=== PATIENT | male | born 1960 | race African-American/Black ===

== ENCOUNTER 2019-11-16 19:11 | Inpatient (IN) | payer OTHER, MEDICAID ==
[~2019-11-16] VITALS: Ht 185.4 cm; Wt 84.8 kg
[2019-11-16 19:16] VITALS: BP_SYST 126
--- NOTE | 2019-11-16 19:16 | NUR ---
Patient to ER bed 8 to gown for evaluation. Side rails up. Report given to FAM Bryan.
--- NOTE | 2019-11-16 19:30 | NUR ---
Pt came to the ED for worsening swelling of his penis. Reports he has penile, ABD pain due to the swelling. Reports it has been going on for several weeks. Denies seeing PCP for issue. No other complaints/injuries noted. Will cont. to monitor.
--- NOTE | 2019-11-16 19:51 | NUR ---
ER Dr. Iverson at bedside examining patient.
[2019-11-16 20:22] LABS: BASOPHILS % (AUTO) 1.1 % (0.0-2.0); EOSINOPHILS % (AUTO) 0.7 % (0.0-4.0); HEMATOCRIT 39.3 % (36-54); HEMOGLOBIN 12.5 g/dL (14.0-18.0); LYMPHOCYTES # (AUTO) 1.3 K/uL (1.0-5.5); LYMPHOCYTES % (AUTO) 28.6 % (20.5-51.5); MEAN CORPUSCULAR HEMOGLOBIN 28 pg (27-31); MEAN CORPUSCULAR HGB CONC 32 % (32-36); MEAN CORPUSCULAR VOLUME 86 fL (79.0-98.0); MONOCYTES # (AUTO) 0.6 K/uL (0.0-1.0); MONOCYTES % (AUTO) 12.5 % (1.7-9.3); NEUTROPHILS # (AUTO) 2.7 K/uL (1.8-7.7); NEUTROPHILS % (AUTO) 57.1 % (40.0-70.0); PLATELET COUNT (AUTO) 260 K/uL (130-430); RED BLOOD CELL COUNT(AUTO) 4.56 MIL/uL (4.2-6.2); RED CELL DISTRIBUTION WIDTH 16.9 % (9.0-15.0); WHITE BLOOD COUNT (AUTO) 4.7 K/uL (4.8-10.8)
[2019-11-16 20:41] LABS: ANION GAP 7 (5-15); CALCIUM 8.5 mg/dL (8.4-11.0); CHLORIDE 106 mmol/L (98-107); GLUCOSE 93 mg/dL (70-99); POTASSIUM 3.9 mmol/L (3.5-5.1); SODIUM SERUM 140 mmol/L (136-145); UREA NITROGEN, BLOOD 26 mg/dL (8-21)
[2019-11-16 20:42] LABS: GFR AFRICAN AMERICAN 67 mL/min (>90)
--- NOTE | 2019-11-16 20:48 | NUR ---
verbal order received from Dr. Iverson for straight catheter. # 14 FR In and Out catheter with use of sterile technique. Immediate return of 150 ml dark yellow urine noted. Urine sample collected and sent to lab. Pt tolerated procedure well.
[2019-11-16 20:50] LABS: ALANINE AMINOTRANSFERASE 40 U/L (12-78); ALBUMIN 2.9 g/dL (3.4-4.8); ASPARTATE AMINOTRANSFERASE 25 U/L (10-37); LIPASE 140 U/L (73-393); TOTAL BILIRUBIN 0.3 mg/dL (0.0-1.0)
--- NOTE | 2019-11-16 21:00 | NUR ---
Pt resting comfortably in bed, no signs of acute distress. Will cont. to monitor.
[2019-11-16 21:50] LABS: BILIRUBIN,URINE 1+ (NEGATIVE); BLOOD, URINE NEGATIVE (NEGATIVE); CLARITY/URINE CLEAR (CLEAR); COLOR,URINE YELLOW (YELLOW); GLUCOSE,URINE NEGATIVE (NEGATIVE); KETONES,URINE NEGATIVE (NEGATIVE); LEUKOCYTE ESTERASE ,URINE NEGATIVE (NEGATIVE); NITRITE, URINE NEGATIVE (NEGATIVE); PROTEIN URINE 2+ (NEGATIVE)
[2019-11-16 22:06] LABS: INR 1.2 (0.80-1.20); PROTHROMBIN TIME 12.1 SECS (9.5-12.5)
[2019-11-16 22:23] LABS: BACTERIA,URINE FEW /HPF (None Seen); RBC,URINE NONE SEEN /HPF (0-3)
[2019-11-16 22:24] LABS: HYALINE CASTS, URINE 0-10 /LPF (None Seen); MUCUS,URINE None Seen /LPF (None Seen)
[2019-11-16] MEDS ORDERED: cefTRIAXone 1 GM IVPB PREMIX 50 ML IV ONE (22:30)
[2019-11-16] MEDS ORDERED: ASPI-1155 PO (23:08)
[2019-11-16] MEDS ORDERED: FAMO40TA7 PO (23:08)
[2019-11-16] MEDS ORDERED: GLIP10TA21 PO (23:08)
[2019-11-16] MEDS ORDERED: DIVA500T4 PO (23:08)
[2019-11-16] MEDS ORDERED: ACET325T53 PO (23:08)
[2019-11-16] MEDS ORDERED: ATEN-41 PO (23:08)
[2019-11-16] MEDS ORDERED: DOCU-144 PO (23:08)
[2019-11-16] MEDS ORDERED: GLU850 PO (23:08)
[2019-11-16] MEDS ORDERED: OLAN10TA3 PO (23:08)
[2019-11-16] MEDS ORDERED: UMEC62.5 IH (23:08)
--- NOTE | 2019-11-16 23:08 | NUR ---
Medication reconciliation completed with information provided by patients paperwork. Any prior medication reconciliation on file was reviewed and corrected.
--- NOTE | 2019-11-16 23:45 | NUR ---
Patient will be admitted to care of Dr. Mckinney. Admitted to [facility] unit. Will go to room 135. Belongings list completed. Complete and up to date summary report printed. SBAR report to be given at bedside with opportunity for questions.
--- NOTE | 2019-11-17 | NUR ---
Started pt on rocephin per MD order. However, when abx started, pt stated, "I need a breathing tx, I am having issues breathing." ER MD made aware. Pt started on 2L NC. Pt O2 saturation is 98 HR is 91.
--- NOTE | 2019-11-17 00:25 | NUR ---
Saumya arita in [facility] - 11/17/19 at 0036 by [email or web address] Transfer to [facility]. IV present no sign or symptom of infiltration.
--- NOTE | 2019-11-17 00:28 | NUR ---
Called [facility] for bed, reports nurse cannot take report due to "providing pt care." Will call back for bed assignment.
--- NOTE | 2019-11-17 00:36 | NUR ---
Transfer to [facility]. IV present no sign or symptom of infiltration.
[2019-11-17 00:40] VITALS: BP_SYST 116
--- NOTE | 2019-11-17 00:41 | NUR ---
ADMISSION NOTE Received patient from ER via gurney. Patient admitted with diagnosis of UTI. Patient is awake, alert, oriented X 3. Patient oriented to hospital room, call light, toileting, pain management and safety-teach back done. Patient informed that FAM Jason will be primary nurse and that their room number is 132C. Personal belongings checked and Belongings List documented. Call light within reach.
[2019-11-17 00:57] VITALS: BP_SYST 116
[2019-11-17] MEDS ORDERED: FLU VACC QS2019-20 36MOS UP/PF 60 MCG/0.5 ML SYRINGE I.M. PRN (01:00)
[2019-11-17] MEDS: KCL 20 mEq in D5/0.45NS 1000mL 1,000 ML IV SCH ×2 (02:06→15:18)
[2019-11-17] MEDS ORDERED: KCL 20 mEq in D5/0.45NS 1000mL 1,000 ML IV ONE (02:08)
--- NOTE | 2019-11-17 06:28 | NUR ---
dr Mckinney informed about the admission prem that the medication reconciliation is not done, will come to see the patient
[2019-11-17 08:00] VITALS: BP_SYST 138
--- NOTE | 2019-11-17 08:00 | NUR ---
Note Pt sitting up in bed eating his breakfast. No SOB/resp distress or pain/discomfort noted. IV in right forearm intact and patent infusing IVF's well. Pt next to nurses' station for close observation for needs and care. No needs noted at this time. Call light within reach.
--- NOTE | 2019-11-17 08:03 | NUR ---
report given to the day shift rn that the patient was given rocephin in er fkir the infection but had a claimed reaction. needsx to ask Dr Mckinney about it,
--- NOTE | 2019-11-17 11:50 | NUR ---
Note Pt resting in bed. No needs noted at this time. Pt's mother and brother have left bedside and gone home. They were at bedside for about an hour. Power of Mid Level Net Developer form in chart - was faxed over from [facility] (pt' residence) per pt's brother's request. Pt denies any needs at this time. Call light within reach.
[2019-11-17 12:53] VITALS: BP_SYST 104
[2019-11-17] MEDS ORDERED: ACETAMINOPHEN 325 MG TABLET PO SCH (15:15)
--- NOTE | 2019-11-17 15:40 | NUR ---
Note Dr Mckinney at bedside doing physical assessment and answering questions/concerns at this time. Call light within reach.
--- NOTE | 2019-11-17 16:56 | NUR ---
Component Assembler: met with pt. to conduct a DCPA PUNCH PRESS SETTER introduced self. Pt was pleasant and willing to assist PUNCH PRESS SETTER with the interview. Pt. stated he was going back to live with his mom however Rn stated pt. came from [facility]. Pt was able to answer questions however PUNCH PRESS SETTER is unsure of the validity. Pt. has a history of Schizophrenia, Bipolar, Anxiety and Dementia. PT. stated he is good with taking all of his medication because it helps him stay calm, he is able to carry a conversation and feels better. PUNCH PRESS SETTER thanks him for all his help.PUNCH PRESS SETTER will remain available as needed.
--- NOTE | 2019-11-17 18:25 | NUR ---
Note Pt sitting on side of bed and eating his dinner. No SOB/resp distress or perineal pain/discomfort noted at this time. Pt was checked on q1' and PRN all shift for needs and care. No needs noted at this time. Call light within reach. Pt pulled out his IV, wants to eat his dinner before having new IV inserted.
--- NOTE | 2019-11-17 19:30 | NUR ---
Opening Note Received report from celina RN, patient sitting up in bed, even and unlabored breathing on room air, no complaints of pain at this time, no IV in place, will reinsert new IV, safety and fall precautions in place, bed locked and in lowest position, patient refused bed alarm despite education, will reinforce education, two side rails up, bed close to nursing station, call light with patient, will continue to monitor.
[2019-11-17 20:00] VITALS: BP_SYST 122
--- NOTE | 2019-11-17 20:30 | NUR ---
IV RE-INSERTION: Received report from celina RN that patient pulled out IV, no signs of injury to the site. Restarted new IV to the left forearm at this time. Successful after 1 attempt. Will observe for any signs of infiltration.
[2019-11-17] MEDS: CEFEPIME 1 GM in D5W 50 ML IV SCH (20:44)
[2019-11-17] MEDS: DIVALPROEX SODIUM 500 MG TAB.SR.24H (DEPAKOTE ER) PO SCH (20:46)
[2019-11-17] MEDS: DOCUSATE SODIUM 100 MG CAPSULE PO SCH (20:46)
[2019-11-17] MEDS: OLANZapine 10 MG TABLET PO SCH (20:46)
--- NOTE | 2019-11-17 22:05 | NUR ---
Incontinence Care Patient had a small BM on bed, incontinence care rendered by this RN, patient is clean and dry. New linens provided. Call light with patient, will continue to monitor.
[2019-11-18] VITALS: BP_SYST 106
--- NOTE | 2019-11-18 00:47 | NUR ---
Incontinence Care Patient had a small loose BM on bed, incontinence care rendered by this RN, patient is clean, dry and repositioned. New linens provided. Call light with patient. Will continue to monitor.
--- NOTE | 2019-11-18 02:05 | NUR ---
RN Rounds Patient resting in bed, even and unlabored breathing on 2L NC, no signs of acute distress, no complaints of pain, IV site is SL, safety and fall precautions in place, call light with patient, will continue to monitor.
--- NOTE | 2019-11-18 04:06 | NUR ---
RN Rounds Assisted patient to restroom and back to bed safely, patient voided, reported no pain, steady gait, no signs of acute distress, IV site is SL and intact, safety and fall precautions in place, call light with patient, will continue to monitor.
[2019-11-18] MEDS: KCL 20 mEq in D5/0.45NS 1000mL 1,000 ML IV SCH (05:14)
--- NOTE | 2019-11-18 06:40 | NUR ---
Closing Note Patient resting in bed, even and unlabored breathing on room air, no complaints of pain at this time, IV intact and infusing well, safety and fall precautions in place, bed locked and in lowest position, patient refused bed alarm despite education, two side rails up, bed close to nursing station, call light with patient, will endorse care to dayshift RN.
[2019-11-18 06:59] LABS: BASOPHILS # (AUTO) 0.1 K/uL (0.0-0.2); BASOPHILS % (AUTO) 1.5 % (0.0-2.0); EOSINOPHILS % (AUTO) 0.4 % (0.0-4.0); LYMPHOCYTES # (AUTO) 1.7 K/uL (1.0-5.5); LYMPHOCYTES % (AUTO) 34.1 % (20.5-51.5); MEAN CORPUSCULAR HEMOGLOBIN 28 pg (27-31); MEAN CORPUSCULAR HGB CONC 33 % (32-36); MEAN CORPUSCULAR VOLUME 86 fL (79.0-98.0); MONOCYTES # (AUTO) 0.6 K/uL (0.0-1.0); MONOCYTES % (AUTO) 11.5 % (1.7-9.3); NEUTROPHILS # (AUTO) 2.7 K/uL (1.8-7.7); NEUTROPHILS % (AUTO) 52.5 % (40.0-70.0); PLATELET COUNT (AUTO) 238 K/uL (130-430); RED BLOOD CELL COUNT(AUTO) 4.29 MIL/uL (4.2-6.2); RED CELL DISTRIBUTION WIDTH 16.7 % (9.0-15.0); WHITE BLOOD COUNT (AUTO) 5.1 K/uL (4.8-10.8)
[2019-11-18 07:16] LABS: CALCIUM 8.4 mg/dL (8.4-11.0); CREATININE 1.08 mg/dL (0.55-1.30); POTASSIUM 3.8 mmol/L (3.5-5.1)
--- NOTE | 2019-11-18 08:00 | NUR ---
AWAKE ALERT SLIGHTLY AGITATED GEETING OUT IF BED SREAMNG STSTED THE DOCTOR IS DISCHARGING HIM TODAY RIGHT NOW WANRING TO CHNAGE HIS CLOTHES TO BE DISCHARGE .
[2019-11-18] MEDS: FAMOTIDINE 20 MG TABLET PO SCH (09:00)
[2019-11-18] MEDS: DIVALPROEX SODIUM 500 MG TAB.SR.24H (DEPAKOTE ER) PO SCH (09:00)
[2019-11-18] MEDS: DOCUSATE SODIUM 100 MG CAPSULE PO SCH ×2 (09:00→22:26)
--- NOTE | 2019-11-18 10:00 | NUR ---
QUIET COOPERATIVE FLUIDS GIVEN WITH ANTIBIOTICS
[2019-11-18] MEDS: CEFEPIME 1 GM in D5W 50 ML IV SCH ×2 (11:00→22:25)
[2019-11-18] MEDS: ASPIRIN 81 MG TAB.CHEW PO SCH (11:01)
[2019-11-18] MEDS: glipiZIDE XL 5 MG TAB ( GLUCOTROL XL) PO SCH (11:04)
[2019-11-18] MEDS: ATENOLOL 25 MG TABLET(TENORMIN) PO SCH (11:06)
[2019-11-18] MEDS: ENOXAPARIN SODIUM 40 MG/0.4 ML SYRINGE SUBCUT SCH (11:07)
--- NOTE | 2019-11-18 12:00 | NUR ---
AWAKE VERY COOPERATIVE TOOK ORAL MEDS GOOD
[2019-11-18 12:27] VITALS: BP_SYST 109
[2019-11-18 12:54] VITALS: BP_SYST 116
[2019-11-18] MEDS ORDERED: MUPIROCIN 2% TOPICAL OINTMENT 22 GM NS ONE (14:00)
--- NOTE | 2019-11-18 14:23 | NUR ---
ATTENDING [facility] DR RAMSEY WAS CALLED, RE: ORDER FOR CHEST XRAY., PT IS WHEEZING, R/O CHF. SPOKE TO JE.
--- NOTE | 2019-11-18 15:00 | NUR ---
UP IN BED TO GO TO THE BATHROOM VERY COOPERATIVE APPETITE FOR LUNCH GOOD
[2019-11-18 18:25] VITALS: BP_SYST 107
--- NOTE | 2019-11-18 18:41 | NUR ---
No significant changes in assessment ,denies any SOB , NO discomfort.
--- NOTE | 2019-11-18 19:10 | NUR ---
OPENING NOTES Patient AOx1. Patient watching TV, calm and cooperative, follow commands. No signs of respiratory distress noted. Denies pain and discomfort at this time. IV site, patency noted. On contact precaution. Call light within reach, patient educated to use call light when assistance is needed, patient verbalized ''ok''. Bed alarm on. Bed locked and in lowest position. Safety precautions in place. Will continue to monitor patient.
[2019-11-18 20:00] VITALS: BP_SYST 136
[2019-11-18] MEDS: OLANZapine 10 MG TABLET PO SCH (22:25)
[2019-11-18] MEDS: MUPIROCIN 2% TOPICAL OINTMENT 22 GM NS SCH (22:26)
[2019-11-18] MEDS: DIVALPROEX SODIUM 500 MG TABLET( DEPAKOTE) PO SCH (22:26)
--- NOTE | 2019-11-18 22:29 | NUR ---
MED PASS Due medication given at this time. BS 72, patient offered orange juice and snacks. No signs of respiratory distress and discomfort noted. Skin warm and dry. No signs of hypoglycemia noted. Patient cooperative. Safety precautions in place. Will continue to monitor.
--- NOTE | 2019-11-18 23:30 | NUR ---
MARY CARE Mary care done at this time with help of ANNITA Betancourt. Patient tolerated well. No signs of respiratory distress and discomfort noted. Safety precautions in place. Will continue to monitor patient.
[2019-11-19] VITALS: BP_SYST 132
--- NOTE | 2019-11-19 01:33 | NUR ---
RN ROUNDS Patient asleep at this time. No signs of respiratory distress and discomfort noted. Breathing even and unlabored. Safety precautions in place. Will continue to monitor patient.
--- NOTE | 2019-11-19 04:35 | NUR ---
RN ROUNDS Patient asleep at this time. No signs of respiratory distress and discomfort noted. Breathing and unlabored. Safety precautions in place. Will continue to monitor.
--- NOTE | 2019-11-19 06:27 | NUR ---
CLOSING NOTES Patient awake AOX1. BS checked was 72. No coverage needed. Patient offered to drink orange juice and offered snacks. No signs of respiratory distress noted. Denies pain and discomfort at this time. On contact precautions maintained throughout the shift. IV site, patency noted. Call light within reach. Bed locked and in lowest position. Safety precautions in place. All needs met throughout the shift. Will continue to monitor until endorsed to oncoming shift nurse for continuity of care.
--- NOTE | 2019-11-19 07:12 | NUR ---
Nutrition Update Gm Scale 18 noted. Pt admitted for UTI Diet: [facility] BMI: 24.7 kg/m2 RD to follow per nutrition care standards.
--- NOTE | 2019-11-19 07:35 | NUR ---
Initial notes: Patient awake, alert and oriented x2. Follow command. Stable. I.V. access patent. On isolation precaution. Call light within reach. Safety measures in placed. Report received at bedside.
[2019-11-19 08:00] VITALS: BP_SYST 131
[2019-11-19 08:04] LABS: BASOPHILS # (AUTO) 0.1 K/uL (0.0-0.2); BASOPHILS % (AUTO) 1.1 % (0.0-2.0); EOSINOPHILS % (AUTO) 0.5 % (0.0-4.0); HEMATOCRIT 39.4 % (36-54); HEMOGLOBIN 12.6 g/dL (14.0-18.0); LYMPHOCYTES # (AUTO) 1.7 K/uL (1.0-5.5); LYMPHOCYTES % (AUTO) 36.5 % (20.5-51.5); MEAN CORPUSCULAR HEMOGLOBIN 28 pg (27-31); MEAN CORPUSCULAR HGB CONC 32 % (32-36); MEAN CORPUSCULAR VOLUME 87 fL (79.0-98.0); MONOCYTES # (AUTO) 0.5 K/uL (0.0-1.0); MONOCYTES % (AUTO) 10.6 % (1.7-9.3); NEUTROPHILS # (AUTO) 2.4 K/uL (1.8-7.7); NEUTROPHILS % (AUTO) 51.3 % (40.0-70.0); PLATELET COUNT (AUTO) 256 K/uL (130-430); RED BLOOD CELL COUNT(AUTO) 4.55 MIL/uL (4.2-6.2); RED CELL DISTRIBUTION WIDTH 17.1 % (9.0-15.0); WHITE BLOOD COUNT (AUTO) 4.8 K/uL (4.8-10.8)
[2019-11-19] MEDS: DIVALPROEX SODIUM 500 MG TABLET( DEPAKOTE) PO SCH ×2 (08:27→20:17)
[2019-11-19] MEDS: DOCUSATE SODIUM 100 MG CAPSULE PO SCH ×3 (08:27→20:17)
[2019-11-19] MEDS: FAMOTIDINE 20 MG TABLET PO SCH (08:28)
[2019-11-19] MEDS: ATENOLOL 25 MG TABLET(TENORMIN) PO SCH (08:28)
[2019-11-19 08:29] LABS: ALBUMIN 3.2 g/dL (3.4-4.8); CALCIUM 8.8 mg/dL (8.4-11.0); CREATININE 1.05 mg/dL (0.55-1.30); POTASSIUM 4.4 mmol/L (3.5-5.1); TOTAL BILIRUBIN 0.6 mg/dL (0.0-1.0)
[2019-11-19] MEDS: ENOXAPARIN SODIUM 40 MG/0.4 ML SYRINGE SUBCUT SCH (08:29)
[2019-11-19] MEDS: glipiZIDE XL 5 MG TAB ( GLUCOTROL XL) PO SCH (08:29)
[2019-11-19] MEDS: ASPIRIN 81 MG TAB.CHEW PO SCH (08:29)
[2019-11-19] MEDS: MUPIROCIN 2% TOPICAL OINTMENT 22 GM NS SCH ×2 (08:30→20:16)
[2019-11-19] MEDS: CEFEPIME 1 GM in D5W 50 ML IV SCH ×2 (08:30→20:16)
--- NOTE | 2019-11-19 11:30 | NUR ---
MARY CARE Mary care done at this time. Patient calm and cooperative. No signs of respiratory distress and discomfort noted. Denies pain at this time. NO SOB. Patient on 2L of oxygen via nasal cannula, attached and secured. Safety precautions in place. Will continue to monitor. Addendum: 11/19/19 at 2345 by Britney Davey RN wrong time , not 1130 instead 2330
[2019-11-19 12:41] VITALS: BP_SYST 100
--- NOTE | 2019-11-19 12:57 | NUR ---
rounds: Patient ambulates to the toilet with assist.
[2019-11-19] MEDS ORDERED: MUPIROCIN 2% TOPICAL OINTMENT 22 GM NS SCH (13:20)
[2019-11-19] MEDS ORDERED: INSULIN REGULAR, HUMAN 100 UNITS/ML, 10 ML VIAL (humuLIN R) SUBCUT PRN (13:30)
[2019-11-19] MEDS ORDERED: DEXTROSE 50%-WATER 50 ML DISP.SYRIN IVP PRN (13:45)
[2019-11-19] MEDS ORDERED: GLUCOSE 15 GM GEL (in 37.5 GM TUBE) PO PRN (13:45)
[2019-11-19] MEDS ORDERED: D5W 1,000 ML IV PRN (13:45)
--- NOTE | 2019-11-19 17:17 | NUR ---
IV: IV RE-INSERTION: IV catheter accidentally pulled. Restarted on LAC #20 on saline lock. Successful after 2 attempts. Will observe for any signs of infiltration.
[2019-11-19 17:34] VITALS: BP_SYST 118
[2019-11-19] MEDS ORDERED: IPRATROPIUM/ALBUTEROL SULFATE 3 ML AMPUL.NEB (DUONEB) INH PRN (18:00)
--- NOTE | 2019-11-19 18:07 | NUR ---
SOB: Patient observed having expiratory wheezing. He said he have an inhaler. Paged Dr. Izaguirre with new order for breathing tx. Addendum: 11/19/19 at 1809 by Paloma Johnson RN Checked 02sat 96%.
--- NOTE | 2019-11-19 18:09 | NUR ---
BM: Patient states he had 2 loose BM this morning. No more BM in the afternoon. Will continue to monitor.
--- NOTE | 2019-11-19 18:14 | NUR ---
Closing notes: Patient resting on bed. Respiratory was called for breathing treatment. Patient stable. On contact precaution. Needs attended. Call light within reach. Safety measures in placed. Report will be given to parking station attendant.
[2019-11-19] MEDS ORDERED: IPRATROPIUM/ALBUTEROL SULFATE 3 ML AMPUL.NEB (DUONEB) ONE (18:32)
--- NOTE | 2019-11-19 19:10 | NUR ---
OPENING NOTES Patient AOx1. Patient lying in bed, calm and cooperative, follow commands. No signs of respiratory distress noted. Denies pain and discomfort at this time. On 2L of oxygen via nasal cannula. IV site, patency noted. On contact precaution. Call light within reach. Bed alarm on. Bed locked and in lowest position. Safety precautions in place. Will continue to monitor patient.
[2019-11-19 20:00] VITALS: BP_SYST 126
[2019-11-19 20:07] VITALS: BP_SYST 118
--- NOTE | 2019-11-19 20:16 | NUR ---
MED PASS Due medication given at this time. BS 86, patient offered orange juice and snacks. No signs of respiratory distress and discomfort noted. Skin warm and dry. No signs of hypoglycemia noted. Patient cooperative. Safety precautions in place. Will continue to monitor.
[2019-11-19] MEDS: OLANZapine 10 MG TABLET PO SCH (20:17)
--- NOTE | 2019-11-19 23:30 | NUR ---
MARY CARE Mary care done at this time. Patient calm and cooperative. No signs of respiratory distress and discomfort noted. Denies pain at this time. NO SOB. Patient on 2L of oxygen via nasal cannula, attached and secured. Safety precautions in place. Will continue to monitor.
--- NOTE | 2019-11-20 02:33 | NUR ---
RN ROUNDS Patient asleep at this time. No signs of respiratory distress and discomfort noted. On 2L of oxygen via nasal cannula, attached and secured. Breathing even and unlabored. Safety precautions in place. Will continue to monitor patient.
--- NOTE | 2019-11-20 04:22 | NUR ---
RN ROUNDS Patient asleep at this time. No signs of respiratory distress and discomfort noted. On 2L of oxygen via nasal cannula, attached and secured. Breathing even and unlabored. Safety precautions in place. Call light within reach. Will continue to monitor patient.
[2019-11-20 06:29] LABS: BASOPHILS % (AUTO) 0.7 % (0.0-2.0); EOSINOPHILS # (AUTO) 0.1 K/uL (0.0-0.4); EOSINOPHILS % (AUTO) 1.3 % (0.0-4.0); HEMATOCRIT 38.2 % (36-54); HEMOGLOBIN 12.1 g/dL (14.0-18.0); LYMPHOCYTES # (AUTO) 1.8 K/uL (1.0-5.5); LYMPHOCYTES % (AUTO) 41.2 % (20.5-51.5); MEAN CORPUSCULAR HEMOGLOBIN 27 pg (27-31); MEAN CORPUSCULAR HGB CONC 32 % (32-36); MEAN CORPUSCULAR VOLUME 87 fL (79.0-98.0); MONOCYTES # (AUTO) 0.5 K/uL (0.0-1.0); MONOCYTES % (AUTO) 11.1 % (1.7-9.3); NEUTROPHILS % (AUTO) 45.7 % (40.0-70.0); PLATELET COUNT (AUTO) 236 K/uL (130-430); RED BLOOD CELL COUNT(AUTO) 4.41 MIL/uL (4.2-6.2); RED CELL DISTRIBUTION WIDTH 17.2 % (9.0-15.0); WHITE BLOOD COUNT (AUTO) 4.4 K/uL (4.8-10.8)
[2019-11-20 06:43] LABS: CALCIUM 8.8 mg/dL (8.4-11.0); CREATININE 1.01 mg/dL (0.55-1.30)
--- NOTE | 2019-11-20 06:47 | NUR ---
CLOSING NOTES Patient awake, lying in bed, AOX1. BS checked was 96. No coverage needed. Patient was offered to drink orange juice and offered snacks. No signs of respiratory distress noted. on 2L of oxygen via nasal cannula, attached and secured. Denies pain and discomfort at this time. On contact precautions maintained throughout the shift. IV site, patency noted. Call light within reach. Bed locked and in lowest position. Safety precautions in place. All needs met throughout the shift. Will continue to monitor until endorsed to oncoming shift nurse for continuity of care.
[2019-11-20 08:00] VITALS: BP_SYST 122
--- NOTE | 2019-11-20 08:00 | NUR ---
received awake and in discomfort 06/10 and prn med to be given.resp even and receiving neb tx.vss.up amb in room.iso maintained.lac sl patent.will continue to monitor and call porter in place
[2019-11-20] MEDS: glipiZIDE XL 5 MG TAB ( GLUCOTROL XL) PO SCH (08:08)
[2019-11-20] MEDS: DIVALPROEX SODIUM 500 MG TABLET( DEPAKOTE) PO SCH (08:08)
[2019-11-20] MEDS: FAMOTIDINE 20 MG TABLET PO SCH (08:09)
[2019-11-20] MEDS: ATENOLOL 25 MG TABLET(TENORMIN) PO SCH (08:09)
[2019-11-20] MEDS: DOCUSATE SODIUM 100 MG CAPSULE PO SCH (08:10)
[2019-11-20] MEDS: ASPIRIN 81 MG TAB.CHEW PO SCH (08:10)
[2019-11-20] MEDS: ENOXAPARIN SODIUM 40 MG/0.4 ML SYRINGE SUBCUT SCH (08:11)
[2019-11-20] MEDS: MUPIROCIN 2% TOPICAL OINTMENT 22 GM NS SCH (08:19)
[2019-11-20] MEDS: CEFEPIME 1 GM in D5W 50 ML IV SCH (08:19)
[2019-11-20 12:00] VITALS: BP_SYST 119
--- NOTE | 2019-11-20 14:00 | NUR ---
Discharge Planning: DCP faxed to Jerad Rogers ( [phone] p [phone]) Addendum: 11/20/19 at 1455 by Jo Day DP Ancram p [phone]) per Rodrigo pt will go to 112V
--- NOTE | 2019-11-20 15:49 | NUR ---
Discharge Planning: Pt has been accepted back to [facility] ([phone]) pt will be going to room 112A. Ambulance has been set up with [facility] ([phone]) orange picker scheduled for 6:00pm; packet taken to nurses station.
[2019-11-20 15:51] VITALS: BP_SYST 125
[2019-11-20 16:00] VITALS: BP_SYST 121
--- NOTE | 2019-11-20 16:30 | NUR ---
REPORT CALLED TO SHAILA AT [facility] PT WILL TRANSFER THERE AT 1800 SCHEDULED PICKUP.BS 49 AND ORANGE JUICE GIVEN AND MEAL TRAY AND WILL CHECK BS AGAIN WHEN DONE.
--- NOTE | 2019-11-20 18:00 | NUR ---
PT PICKED UP FOR TX TO [facility] BY [facility].BS WASNT RECHECKED UPON D/C R BECAUSE PT REFUSED BUT ATE MEAL AND HAD 2 OJS.REPORT GIVEN TO ART HISTORY PROFESSOR AND PAPERWORK TAKEN.
== END 2019-11-20 18:00 | DRG 689 ==
LOC: SED 19:11 → SMU 23:01
PROVIDERS: ADMIT Family Medicine; ATTEND Family Medicine
DX: N39.0 Urinary tract infection, site not specified (principal); N17.0 Acute kidney failure with tubular necrosis; E44.0 Moderate protein-calorie malnutrition; I10 Essential (primary) hypertension; F03.90 Unspecified dementia, unspecified severity, without behavioral disturbance, psychotic disturbance, mood disturbance, and anxiety; F17.210 Nicotine dependence, cigarettes, uncomplicated; E11.9 Type 2 diabetes mellitus without complications; N50.89 Other specified disorders of the male genital organs; F29 Unspecified psychosis not due to a substance or known physiological condition; Z68.27 Body mass index [BMI] 27.0-27.9, adult; Z79.899 Other long term (current) drug therapy; Z88.8 Allergy status to other drugs, medicaments and biological substances; Z79.82 Long term (current) use of aspirin
CPT/HCPCS: 36415; 80048; 80053; 81000-TC; 82962; 83036; 83690-TC; 83880; 84484; 85025; 85610-TC; 85730-TC; 87081; 87086; 87230-TC; 96365; 99285; J0692; J0696; J1650; J1815; J7060; J7620

== ENCOUNTER 2019-11-28 20:55 | Inpatient (IN) | payer OTHER, MEDICAID ==
[~2019-11-28] VITALS: Ht 185.4 cm; Wt 93.1 kg
[2019-11-28 20:55] VITALS: BP_SYST 122
[~2019-11-28 20:55] MED LIST: ACET325T53 PO; ASPI-1155 PO; ATEN-41 PO; DIVA500T4 PO; DOCU-144 PO; FAMO40TA7 PO; GLIP10TA21 PO; GLU850 PO; OLAN10TA3 PO; UMEC62.5 IH
[2019-11-29] MEDS ORDERED: UMEC62.5 IH (03:13)
[2019-11-29] MEDS ORDERED: FURO-150 PO (03:13)
[2019-11-29] MEDS ORDERED: FAMO40TA7 PO (03:13)
[2019-11-29] MEDS ORDERED: GLIP10TA11 PO (03:13)
[2019-11-29] MEDS ORDERED: ACET-2165 PO (03:13)
[2019-11-29] MEDS ORDERED: CIPR-211 PO (03:13)
[2019-11-29 03:41] LABS: BASOPHILS % (AUTO) 0.9 % (0.0-2.0); EOSINOPHILS % (AUTO) 0.7 % (0.0-4.0); HEMATOCRIT 37.9 % (36-54); LYMPHOCYTES # (AUTO) 1.2 K/uL (1.0-5.5); LYMPHOCYTES % (AUTO) 30.3 % (20.5-51.5); MEAN CORPUSCULAR HEMOGLOBIN 27 pg (27-31); MEAN CORPUSCULAR HGB CONC 32 % (32-36); MEAN CORPUSCULAR VOLUME 86 fL (79.0-98.0); MONOCYTES # (AUTO) 0.6 K/uL (0.0-1.0); MONOCYTES % (AUTO) 15.5 % (1.7-9.3); NEUTROPHILS # (AUTO) 2.2 K/uL (1.8-7.7); NEUTROPHILS % (AUTO) 52.6 % (40.0-70.0); PLATELET COUNT (AUTO) 206 K/uL (130-430); RED BLOOD CELL COUNT(AUTO) 4.44 MIL/uL (4.2-6.2); RED CELL DISTRIBUTION WIDTH 17.1 % (9.0-15.0); WHITE BLOOD COUNT (AUTO) 4.1 K/uL (4.8-10.8)
[2019-11-29] MEDS ORDERED: KETOROLAC TROMETHAMINE 15 MG VIAL IVP PRN (03:45)
[2019-11-29 03:52] LABS: CALCIUM 8.6 mg/dL (8.4-11.0); CREATININE 0.98 mg/dL (0.55-1.30); POTASSIUM 3.9 mmol/L (3.5-5.1)
[2019-11-29 03:58] LABS: ALBUMIN 3.2 g/dL (3.4-4.8); TOTAL BILIRUBIN 0.4 mg/dL (0.0-1.0)
[2019-11-29 10:24] VITALS: BP_SYST 108
[2019-11-29] MEDS ORDERED: FLU VACC QS2019-20 36MOS UP/PF 60 MCG/0.5 ML SYRINGE I.M. PRN (11:00)
[2019-11-29] MEDS ORDERED: INSULIN REGULAR, HUMAN 100 UNITS/ML, 10 ML VIAL (humuLIN R) SUBCUT PRN (14:00)
[2019-11-29] MEDS ORDERED: LevALBUTEROL HCL 1.25 MG/0.5 ML *CONC.* VIAL.NEB (XOPENEX CONC.) INH PRN (14:00)
[2019-11-29] MEDS ORDERED: DOCUSATE SODIUM 100 MG CAPSULE PO ONE (14:00)
[2019-11-29] MEDS ORDERED: ASPIRIN 81 MG TAB.CHEW PO ONE (14:00)
[2019-11-29] MEDS ORDERED: ACETAMINOPHEN 325 MG TABLET PO PRN (14:00)
[2019-11-29] MEDS ORDERED: FAMOTIDINE 20 MG TABLET PO ONE (14:15)
[2019-11-29] MEDS ORDERED: DEXTROSE 50%-WATER 50 ML DISP.SYRIN IVP PRN (14:15)
[2019-11-29] MEDS ORDERED: FUROSEMIDE 20 MG/2 ML VIAL IVP ONE (14:15)
[2019-11-29] MEDS ORDERED: D5W 1,000 ML IV PRN (14:15)
[2019-11-29] MEDS ORDERED: ATENOLOL 25 MG TABLET(TENORMIN) PO ONE (14:15)
[2019-11-29] MEDS: LevALBUTEROL HCL 1.25 MG/0.5 ML *CONC.* VIAL.NEB (XOPENEX CONC.) INH SCH ×2 (14:22→23:37)
[2019-11-29 15:23] VITALS: BP_SYST 120
[2019-11-29 20:00] VITALS: BP_SYST 125
[2019-11-29] MEDS: FUROSEMIDE 20 MG/2 ML VIAL IVP SCH (21:20)
[2019-11-29] MEDS: DOCUSATE SODIUM 100 MG CAPSULE PO SCH (21:21)
[2019-11-29] MEDS: ENOXAPARIN SODIUM 40 MG/0.4 ML SYRINGE SUBCUT SCH (21:23)
[2019-11-30 01:21] VITALS: BP_SYST 121
[2019-11-30 06:49] LABS: BASOPHILS % (AUTO) 0.6 % (0.0-2.0); EOSINOPHILS % (AUTO) 0.3 % (0.0-4.0); HEMATOCRIT 37.8 % (36-54); HEMOGLOBIN 12.1 g/dL (14.0-18.0); LYMPHOCYTES # (AUTO) 1.2 K/uL (1.0-5.5); LYMPHOCYTES % (AUTO) 26.8 % (20.5-51.5); MEAN CORPUSCULAR HEMOGLOBIN 27 pg (27-31); MEAN CORPUSCULAR HGB CONC 32 % (32-36); MEAN CORPUSCULAR VOLUME 85 fL (79.0-98.0); MONOCYTES # (AUTO) 0.7 K/uL (0.0-1.0); MONOCYTES % (AUTO) 15.2 % (1.7-9.3); NEUTROPHILS # (AUTO) 2.5 K/uL (1.8-7.7); NEUTROPHILS % (AUTO) 57.1 % (40.0-70.0); PLATELET COUNT (AUTO) 201 K/uL (130-430); RED BLOOD CELL COUNT(AUTO) 4.47 MIL/uL (4.2-6.2); RED CELL DISTRIBUTION WIDTH 17.6 % (9.0-15.0); WHITE BLOOD COUNT (AUTO) 4.4 K/uL (4.8-10.8)
[2019-11-30 06:58] LABS: C-REACTIVE PROTEIN QUANT 0.5 mg/dL (0-0.5); CALCIUM 8.8 mg/dL (8.4-11.0); CREATININE 1.09 mg/dL (0.55-1.30); POTASSIUM 4.1 mmol/L (3.5-5.1)
[2019-11-30 07:10] LABS: INR 1.1 (0.80-1.20); PROTHROMBIN TIME 11.3 SECS (9.5-12.5)
[2019-11-30] MEDS: LevALBUTEROL HCL 1.25 MG/0.5 ML *CONC.* VIAL.NEB (XOPENEX CONC.) INH SCH ×3 (07:50→23:22)
[2019-11-30 08:00] VITALS: BP_SYST 127
[2019-11-30] MEDS: FAMOTIDINE 20 MG TABLET PO SCH (08:28)
[2019-11-30] MEDS: DOCUSATE SODIUM 100 MG CAPSULE PO SCH ×2 (08:29→20:33)
[2019-11-30] MEDS: ASPIRIN 81 MG TAB.CHEW PO SCH (08:30)
[2019-11-30] MEDS: ATENOLOL 25 MG TABLET(TENORMIN) PO SCH (08:30)
[2019-11-30] MEDS: FUROSEMIDE 20 MG/2 ML VIAL IVP SCH ×2 (08:31→20:31)
[2019-11-30 12:29] VITALS: BP_SYST 95
[2019-11-30 16:29] VITALS: BP_SYST 93
[2019-11-30] MEDS ORDERED: BISACODYL 5 MG TABLET.DR (DULCOLAX) PO ONE (17:00)
[2019-11-30] MEDS ORDERED: GOLYTELY / COLYTE SOLUTION 4 LITERS PO ONE (18:00)
[2019-11-30 20:00] VITALS: BP_SYST 108
[2019-11-30] MEDS: ENOXAPARIN SODIUM 40 MG/0.4 ML SYRINGE SUBCUT SCH (20:33)
[2019-12-01 00:08] VITALS: BP_SYST 128
[2019-12-01] MEDS ORDERED: SIMETHICONE 40 MG/0.6 ML ML PO ONE (07:00)
[2019-12-01] MEDS ORDERED: MEPERIDINE HCL/PF 50 MG/ML AMP IM ONE (07:00)
[2019-12-01] MEDS ORDERED: MIDAZOLAM HCL/PF 2 MG/2 ML SYRINGE IVP ONE (07:00)
[2019-12-01] MEDS: LevALBUTEROL HCL 1.25 MG/0.5 ML *CONC.* VIAL.NEB (XOPENEX CONC.) INH SCH ×3 (07:23→22:36)
[2019-12-01 07:45] VITALS: BP_SYST 114
[2019-12-01 08:00] LABS: INR 1.2 (0.80-1.20); PROTHROMBIN TIME 11.8 SECS (9.5-12.5)
[2019-12-01] MEDS: ATENOLOL 25 MG TABLET(TENORMIN) PO SCH (09:00)
[2019-12-01] MEDS: FAMOTIDINE 20 MG TABLET PO SCH (09:00)
[2019-12-01] MEDS: FUROSEMIDE 20 MG/2 ML VIAL IVP SCH ×2 (09:00→22:26)
[2019-12-01] MEDS: DOCUSATE SODIUM 100 MG CAPSULE PO SCH ×2 (09:00→22:26)
[2019-12-01] MEDS: ASPIRIN 81 MG TAB.CHEW PO SCH (09:00)
[2019-12-01 09:06] LABS: FERRITIN 34 ng/mL (30-400)
[2019-12-01 11:11] LABS: % FREE PSA 16.5 % (.); AFP, TUMOR MARKER 1.4 ng/mL (0.0-8.3); ANTI NUCLEAR AB WITH REFLEX Negative (Negative); FREE PSA 0.94 ng/mL
[2019-12-01 12:07] LABS: HEPATITIS B CORE AB, TOTAL Negative (Negative); HEPATITIS B SURFACE AG Negative (Negative); HEPATITIS C VIRUS AB <0.1 s/co ratio (0.0-0.9)
[2019-12-01 12:20] VITALS: BP_SYST 109
[2019-12-01 16:55] VITALS: BP_SYST 105
[2019-12-01 19:00] VITALS: BP_SYST 114
[2019-12-01 20:00] VITALS: BP_SYST 114
[2019-12-01] MEDS: ENOXAPARIN SODIUM 40 MG/0.4 ML SYRINGE SUBCUT SCH (22:27)
[2019-12-02 00:14] VITALS: BP_SYST 128
[2019-12-02 06:54] LABS: BASOPHILS # (AUTO) 0.1 K/uL (0.0-0.2); BASOPHILS % (AUTO) 1.2 % (0.0-2.0); EOSINOPHILS # (AUTO) 0.1 K/uL (0.0-0.4); EOSINOPHILS % (AUTO) 1.5 % (0.0-4.0); HEMATOCRIT 36.6 % (36-54); HEMOGLOBIN 11.6 g/dL (14.0-18.0); LYMPHOCYTES # (AUTO) 1.1 K/uL (1.0-5.5); LYMPHOCYTES % (AUTO) 24.4 % (20.5-51.5); MEAN CORPUSCULAR HEMOGLOBIN 27 pg (27-31); MEAN CORPUSCULAR HGB CONC 32 % (32-36); MEAN CORPUSCULAR VOLUME 84 fL (79.0-98.0); MONOCYTES % (AUTO) 21.5 % (1.7-9.3); NEUTROPHILS # (AUTO) 2.3 K/uL (1.8-7.7); NEUTROPHILS % (AUTO) 51.4 % (40.0-70.0); PLATELET COUNT (AUTO) 172 K/uL (130-430); RED BLOOD CELL COUNT(AUTO) 4.33 MIL/uL (4.2-6.2); RED CELL DISTRIBUTION WIDTH 17.8 % (9.0-15.0); WHITE BLOOD COUNT (AUTO) 4.6 K/uL (4.8-10.8)
[2019-12-02 06:55] LABS: CALCIUM 8.8 mg/dL (8.4-11.0); CREATININE 1.17 mg/dL (0.55-1.30); POTASSIUM 3.8 mmol/L (3.5-5.1)
[2019-12-02] MEDS: LevALBUTEROL HCL 1.25 MG/0.5 ML *CONC.* VIAL.NEB (XOPENEX CONC.) INH SCH ×3 (07:32→23:03)
[2019-12-02 08:00] VITALS: BP_SYST 120
[2019-12-02] MEDS: DOCUSATE SODIUM 100 MG CAPSULE PO SCH ×2 (08:37→21:38)
[2019-12-02] MEDS: FAMOTIDINE 20 MG TABLET PO SCH (08:37)
[2019-12-02] MEDS: ATENOLOL 25 MG TABLET(TENORMIN) PO SCH (08:39)
[2019-12-02] MEDS: ASPIRIN 81 MG TAB.CHEW PO SCH (08:45)
[2019-12-02] MEDS: FUROSEMIDE 20 MG/2 ML VIAL IVP SCH ×2 (08:45→21:39)
[2019-12-02 10:48] VITALS: BP_SYST 120
[2019-12-02] MEDS: MAG-AL HYDROX/SIMETH 30 ML UDC PO PRN (11:19)
[2019-12-02] MEDS: GLUCOSE 15 GM GEL (in 37.5 GM TUBE) PO PRN ×3 (11:36→12:32)
[2019-12-02 12:38] VITALS: BP_SYST 121
[2019-12-02 13:26] LABS: PROSTATE SPECIFIC AG TOTAL 5.7 ng/mL (0.0-4.0)
[2019-12-02 16:34] VITALS: BP_SYST 98
[2019-12-02 20:00] VITALS: BP_SYST 104
[2019-12-02] MEDS: ENOXAPARIN SODIUM 40 MG/0.4 ML SYRINGE SUBCUT SCH (21:40)
[2019-12-03 00:41] VITALS: BP_SYST 111
[2019-12-03] MEDS: LevALBUTEROL HCL 1.25 MG/0.5 ML *CONC.* VIAL.NEB (XOPENEX CONC.) INH SCH ×3 (07:07→22:48)
[2019-12-03 08:00] VITALS: BP_SYST 123
[2019-12-03] MEDS: DOCUSATE SODIUM 100 MG CAPSULE PO SCH ×2 (09:36→20:29)
[2019-12-03] MEDS: ATENOLOL 25 MG TABLET(TENORMIN) PO SCH (09:37)
[2019-12-03] MEDS: FAMOTIDINE 20 MG TABLET PO SCH (09:37)
[2019-12-03] MEDS: ASPIRIN 81 MG TAB.CHEW PO SCH (09:37)
[2019-12-03] MEDS: FUROSEMIDE 20 MG/2 ML VIAL IVP SCH ×2 (09:38→20:30)
[2019-12-03] MEDS: MAG-AL HYDROX/SIMETH 30 ML UDC PO PRN ×2 (10:48→11:06)
[2019-12-03 12:33] VITALS: BP_SYST 102
[2019-12-03 14:09] LABS: LIVER-KIDNEY MICROSOMAL AB 1.3 Units (0.0-20.0)
[2019-12-03 16:37] VITALS: BP_SYST 106
[2019-12-03 19:55] VITALS: BP_SYST 119
[2019-12-03] MEDS: ENOXAPARIN SODIUM 40 MG/0.4 ML SYRINGE SUBCUT SCH (20:34)
[2019-12-04 00:39] VITALS: BP_SYST 110
[2019-12-04] MEDS: LevALBUTEROL HCL 1.25 MG/0.5 ML *CONC.* VIAL.NEB (XOPENEX CONC.) INH SCH ×2 (07:35→13:54)
[2019-12-04 08:14] LABS: EOSINOPHILS % (AUTO) 0.5 % (0.0-4.0); HEMATOCRIT 37.6 % (36-54); HEMOGLOBIN 11.9 g/dL (14.0-18.0); LYMPHOCYTES # (AUTO) 1.6 K/uL (1.0-5.5); LYMPHOCYTES % (AUTO) 36.4 % (20.5-51.5); MEAN CORPUSCULAR HEMOGLOBIN 27 pg (27-31); MEAN CORPUSCULAR HGB CONC 32 % (32-36); MEAN CORPUSCULAR VOLUME 84 fL (79.0-98.0); MONOCYTES # (AUTO) 0.6 K/uL (0.0-1.0); MONOCYTES % (AUTO) 14.8 % (1.7-9.3); NEUTROPHILS % (AUTO) 47.3 % (40.0-70.0); PLATELET COUNT (AUTO) 180 K/uL (130-430); RED BLOOD CELL COUNT(AUTO) 4.47 MIL/uL (4.2-6.2); RED CELL DISTRIBUTION WIDTH 17.8 % (9.0-15.0); WHITE BLOOD COUNT (AUTO) 4.3 K/uL (4.8-10.8)
[2019-12-04 08:19] LABS: CALCIUM 8.9 mg/dL (8.4-11.0); CREATININE 1.3 mg/dL (0.55-1.30)
[2019-12-04] MEDS: FUROSEMIDE 20 MG/2 ML VIAL IVP SCH (10:02)
[2019-12-04] MEDS: DOCUSATE SODIUM 100 MG CAPSULE PO SCH (10:02)
[2019-12-04] MEDS: FAMOTIDINE 20 MG TABLET PO SCH (10:03)
[2019-12-04] MEDS: ATENOLOL 25 MG TABLET(TENORMIN) PO SCH (10:03)
[2019-12-04] MEDS: ASPIRIN 81 MG TAB.CHEW PO SCH (10:03)
[2019-12-04 11:06] LABS: ANTI-SMOOTH MUSCLE AB 7 Units (0-19)
[2019-12-04 13:28] VITALS: BP_SYST 111
[2019-12-04 17:11] VITALS: BP_SYST 124
[2019-12-04 18:11] VITALS: BP_SYST 112
[2019-12-04 21:32] LABS: ALPHA-1-ANTITRYPSIN, S 191 mg/dL (101-187)
[2019-12-04 21:33] LABS: CERULOPLASMIN 31.2 mg/dL (16.0-31.0)
== END 2019-12-04 18:28 | DRG 394 ==
LOC: SED 20:55 → SMU 11-29 03:36
PROVIDERS: ADMIT Family Medicine; ATTEND Family Medicine
PROC: 0DB68ZX Excision of Stomach, Via Natural or Artificial Opening Endoscopic, Diagnostic (ICD-10-PCS; principal; 2019-12-01 08:00)
PROC: 0DBL8ZZ Excision of Transverse Colon, Via Natural or Artificial Opening Endoscopic (ICD-10-PCS; 2019-12-01 08:00)
DX: K63.5 Polyp of colon (principal); R18.8 Other ascites; J91.8 Pleural effusion in other conditions classified elsewhere; K29.70 Gastritis, unspecified, without bleeding; K29.80 Duodenitis without bleeding; E11.9 Type 2 diabetes mellitus without complications; F03.90 Unspecified dementia, unspecified severity, without behavioral disturbance, psychotic disturbance, mood disturbance, and anxiety; I10 Essential (primary) hypertension; N40.0 Benign prostatic hyperplasia without lower urinary tract symptoms; F17.210 Nicotine dependence, cigarettes, uncomplicated; F20.9 Schizophrenia, unspecified; J45.909 Unspecified asthma, uncomplicated; K21.0 Gastro-esophageal reflux disease with esophagitis; K64.8 Other hemorrhoids; N43.3 Hydrocele, unspecified; Z88.8 Allergy status to other drugs, medicaments and biological substances; Z79.899 Other long term (current) drug therapy
CPT/HCPCS: 36415; 43239; 45380; 76857; 76870-TC; 80048; 80053; 82103; 82105; 82390; 82728; 82962; 83516; 84153; 85025; 85610-TC; 86038; 86140; 86376; 86704; 86708; 86803; 87081; 87340; 88305; 88312; 88313; 94640; 94760; 99285; J1650; J1815; J1940; J3465; J7030; J7612

== ENCOUNTER 2020-01-17 11:14 | Inpatient (IN) | payer OTHER, MEDICAID ==
[~2020-01-17] VITALS: Ht 185.4 cm; Wt 70.8 kg
[~2020-01-17 11:14] MED LIST changes: +ACET-2165 PO; -ACET325T53 PO; -DIVA500T4 PO; +GLIP10TA11 PO; -GLIP10TA21 PO; -GLU850 PO; -OLAN10TA3 PO
[2020-01-17 11:16] VITALS: BP_SYST 136
[2020-01-17] MEDS ORDERED: FUROSEMIDE 40 MG/4 ML VIAL IVP ONE (11:30)
[2020-01-17] MEDS ORDERED: NITROGLYCERIN 1 INCH (GM) OINT. TP ONE (11:30)
[2020-01-17] MEDS ORDERED: IPRATROPIUM/ALBUTEROL SULFATE 3 ML AMPUL.NEB (DUONEB) INH ONE ×2 (11:30→13:00)
[2020-01-17] MEDS ORDERED: IPRATROPIUM/ALBUTEROL SULFATE 3 ML AMPUL.NEB (DUONEB) ONE (11:41)
[2020-01-17 12:12] LABS: HEMOGLOBIN 13.4 g/dL (14.0-18.0)
[2020-01-17] MEDS ORDERED: PRO40 PO (12:12)
[2020-01-17 12:17] LABS: LYMPHOCYTES # (AUTO) 1.4 K/uL (1.0-5.5); MONOCYTES # (AUTO) 0.5 K/uL (0.0-1.0); WHITE BLOOD COUNT (AUTO) 4.9 K/uL (4.8-10.8)
[2020-01-17 12:22] LABS: EOSINOPHILS % (AUTO) 0.2 % (0.0-4.0); HEMATOCRIT 42.4 % (36-54); LYMPHOCYTES % (AUTO) 28.5 % (20.5-51.5); MEAN CORPUSCULAR HEMOGLOBIN 25 pg (27-31); MEAN CORPUSCULAR HGB CONC 32 % (32-36); MEAN CORPUSCULAR VOLUME 78 fL (79.0-98.0); MONOCYTES % (AUTO) 10.6 % (1.7-9.3); NEUTROPHILS % (AUTO) 59.7 % (40.0-70.0); PLATELET COUNT (AUTO) 280 K/uL (130-430); RED BLOOD CELL COUNT(AUTO) 5.44 MIL/uL (4.2-6.2); RED CELL DISTRIBUTION WIDTH 19.2 % (9.0-15.0)
[2020-01-17 12:45] LABS: CALCIUM 9.2 mg/dL (8.4-11.0); CREATININE 1.47 mg/dL (0.55-1.30)
[2020-01-17 12:49] LABS: INR 1.6 (0.80-1.20)
[2020-01-17 12:50] LABS: ALBUMIN 3.6 g/dL (3.4-4.8)
[2020-01-17 12:56] LABS: PROTHROMBIN TIME 16.1 SECS (9.5-12.5)
[2020-01-17 13:04] LABS: BILIRUBIN,URINE NEGATIVE (NEGATIVE); BLOOD, URINE NEGATIVE (NEGATIVE); CLARITY/URINE CLEAR (CLEAR); COLOR,URINE YELLOW (YELLOW); GLUCOSE,URINE NEGATIVE (NEGATIVE); KETONES,URINE NEGATIVE (NEGATIVE); LEUKOCYTE ESTERASE ,URINE NEGATIVE (NEGATIVE); NITRITE, URINE NEGATIVE (NEGATIVE); PH,URINE 5.5 (5.0-8.0); PROTEIN URINE NEGATIVE (NEGATIVE)
[2020-01-17 15:31] VITALS: BP_SYST 141
[2020-01-17] MEDS ORDERED: FLU VACC QS2019-20 36MOS UP/PF 60 MCG/0.5 ML SYRINGE I.M. PRN (16:15)
[2020-01-17 16:35] VITALS: BP_SYST 129
[2020-01-17] MEDS ORDERED: ACETAMINOPHEN 325 MG TABLET PO PRN (18:30)
[2020-01-17] MEDS ORDERED: LevALBUTEROL HCL 1.25 MG/0.5 ML *CONC.* VIAL.NEB (XOPENEX CONC.) INH PRN (18:45)
[2020-01-17 18:59] VITALS: BP_SYST 129
[2020-01-17 19:00] VITALS: BP_SYST 123
[2020-01-17] MEDS ORDERED: LevALBUTEROL HCL 1.25 MG/0.5 ML *CONC.* VIAL.NEB (XOPENEX CONC.) INH ONE (19:00)
[2020-01-17 20:00] VITALS: BP_SYST 123
[2020-01-17] MEDS: INSULIN REGULAR, HUMAN 100 UNITS/ML, 10 ML VIAL (humuLIN R) SUBCUT PRN (20:23)
[2020-01-17] MEDS: FUROSEMIDE 20 MG/2 ML VIAL IVP SCH (20:24)
[2020-01-17] MEDS: DOCUSATE SODIUM 100 MG CAPSULE PO SCH (20:24)
[2020-01-18] MEDS: LevALBUTEROL HCL 1.25 MG/0.5 ML *CONC.* VIAL.NEB (XOPENEX CONC.) INH SCH ×4 (00:30→19:00)
[2020-01-18 01:18] VITALS: BP_SYST 107
[2020-01-18 05:48] LABS: INR 1.4 (0.80-1.20)
[2020-01-18 05:49] LABS: CALCIUM 8.9 mg/dL (8.4-11.0); CREATININE 1.49 mg/dL (0.55-1.30); POTASSIUM 4.4 mmol/L (3.5-5.1)
[2020-01-18 07:01] LABS: HEMATOCRIT 38.9 % (36-54); HEMOGLOBIN 12.2 g/dL (14.0-18.0); MEAN CORPUSCULAR HEMOGLOBIN 24 pg (27-31); MEAN CORPUSCULAR HGB CONC 31 % (32-36); MEAN CORPUSCULAR VOLUME 77 fL (79.0-98.0); PLATELET COUNT (AUTO) 261 K/uL (130-430); RED BLOOD CELL COUNT(AUTO) 5.02 MIL/uL (4.2-6.2); WHITE BLOOD COUNT (AUTO) 4.3 K/uL (4.8-10.8)
[2020-01-18] MEDS: ASPIRIN 81 MG TAB.CHEW PO SCH (08:38)
[2020-01-18] MEDS: DOCUSATE SODIUM 100 MG CAPSULE PO SCH ×2 (08:38→21:50)
[2020-01-18] MEDS: PANTOPRAZOLE SODIUM 40 MG TAB PO SCH (08:38)
[2020-01-18] MEDS: FUROSEMIDE 20 MG/2 ML VIAL IVP SCH ×2 (08:39→21:49)
[2020-01-18 08:58] LABS: BASOPHILS % (MANUAL) 0 % (0-2); EOSINOPHILS % (MANUAL) 0 % (0-7); LYMPHOCYTES % (MANUAL) 15 % (20-46); MONOCYTES % (MANUAL) 7 % (0-11)
[2020-01-18] MEDS ORDERED: ATENOLOL 25 MG TABLET(TENORMIN) PO SCH (09:00)
[2020-01-18] MEDS: SPIRONOLACTONE 25 MG TABLET (ALDACTONE) PO SCH ×2 (11:37→21:50)
[2020-01-18] MEDS: CARVEDILOL 6.25 MG TABLET (COREG) PO SCH ×2 (11:38→21:51)
[2020-01-18 12:06] VITALS: BP_SYST 128
[2020-01-18 12:38] VITALS: BP_SYST 127
[2020-01-18 14:07] LABS: APPEARANCE,SPUN,BODY FLUID CLEAR (CLEAR); BF APPEARANCE UNSPUN CLEAR (CLEAR); BODY FLUID COLOR YELLOW (LT YELLOW); BODY FLUID SOURCE/ TYPE ASCITES; BODY FLUID TOTAL VOLUME 6250 mL; MONOCYTES,BODY FLUID 40 %; NEUTROPHIL, BODY FLUID 60 %; RBC, BODY FLUID 48 /uL; SOURCE/TYPE ,BODY FLUID PARACENTESIS; WBC, BODY FLUID 84 /uL
[2020-01-18] MEDS ORDERED: METOLAZONE 5 MG TABLET PO ONE (16:00)
[2020-01-18 16:32] VITALS: BP_SYST 115
[2020-01-18 19:52] LABS: BODY FLUID GLUCOSE 123 mg/dL
[2020-01-18 19:53] LABS: BODY FLUID TOTAL PROTEIN 3.2 g/dL
[2020-01-18 20:45] VITALS: BP_SYST 128
[2020-01-18] MEDS: MUPIROCIN 2% TOPICAL OINTMENT 22 GM NS SCH (21:49)
[2020-01-18] MEDS: INSULIN REGULAR, HUMAN 100 UNITS/ML, 10 ML VIAL (humuLIN R) SUBCUT PRN (21:54)
[2020-01-19 00:57] VITALS: BP_SYST 105
[2020-01-19] MEDS: LevALBUTEROL HCL 1.25 MG/0.5 ML *CONC.* VIAL.NEB (XOPENEX CONC.) INH SCH ×4 (01:00→21:03)
[2020-01-19 06:56] LABS: ALBUMIN 2.7 g/dL (3.4-4.8); CALCIUM 8.7 mg/dL (8.4-11.0); CREATININE 1.41 mg/dL (0.55-1.30); POTASSIUM 4.1 mmol/L (3.5-5.1); THYROID STIMULATING HORMONE 4.46 uIu/mL (0.36-3.74); TOTAL BILIRUBIN 0.8 mg/dL (0.0-1.0)
[2020-01-19 07:25] LABS: HEMATOCRIT 38.6 % (36-54); HEMOGLOBIN 12.1 g/dL (14.0-18.0); MEAN CORPUSCULAR HEMOGLOBIN 24 pg (27-31); MEAN CORPUSCULAR HGB CONC 32 % (32-36); MEAN CORPUSCULAR VOLUME 78 fL (79.0-98.0); PLATELET COUNT (AUTO) 237 K/uL (130-430); RED BLOOD CELL COUNT(AUTO) 4.98 MIL/uL (4.2-6.2); RED CELL DISTRIBUTION WIDTH 18.8 % (9.0-15.0); WHITE BLOOD COUNT (AUTO) 4.5 K/uL (4.8-10.8)
[2020-01-19 08:00] VITALS: BP_SYST 109
[2020-01-19 09:35] LABS: BAND % (MANUAL) 2 % (0-6); BASOPHILS % (MANUAL) 0 % (0-2); EOSINOPHILS % (MANUAL) 0 % (0-7); LYMPHOCYTES % (MANUAL) 12 % (20-46); MONOCYTES % (MANUAL) 6 % (0-11)
[2020-01-19] MEDS: DOCUSATE SODIUM 100 MG CAPSULE PO SCH ×2 (10:06→21:16)
[2020-01-19] MEDS: PANTOPRAZOLE SODIUM 40 MG TAB PO SCH (10:06)
[2020-01-19] MEDS: MUPIROCIN 2% TOPICAL OINTMENT 22 GM NS SCH ×2 (10:06→21:15)
[2020-01-19] MEDS: ASPIRIN 81 MG TAB.CHEW PO SCH (10:07)
[2020-01-19] MEDS: CARVEDILOL 6.25 MG TABLET (COREG) PO SCH ×2 (10:10→21:18)
[2020-01-19] MEDS: FUROSEMIDE 20 MG/2 ML VIAL IVP SCH ×2 (10:11→21:15)
[2020-01-19] MEDS: METOLAZONE 5 MG TABLET PO SCH (10:11)
[2020-01-19] MEDS: SPIRONOLACTONE 25 MG TABLET (ALDACTONE) PO SCH ×2 (10:13→21:16)
[2020-01-19 11:49] VITALS: BP_SYST 115
[2020-01-19] MEDS: INSULIN REGULAR, HUMAN 100 UNITS/ML, 10 ML VIAL (humuLIN R) SUBCUT PRN (12:10)
[2020-01-19 14:54] VITALS: BP_SYST 115
[2020-01-19 20:00] VITALS: BP_SYST 113
[2020-01-20 00:17] VITALS: BP_SYST 125
[2020-01-20] MEDS: LevALBUTEROL HCL 1.25 MG/0.5 ML *CONC.* VIAL.NEB (XOPENEX CONC.) INH SCH ×4 (01:42→20:25)
[2020-01-20 05:38] LABS: ALBUMIN 2.7 g/dL (3.4-4.8); CALCIUM 8.4 mg/dL (8.4-11.0); CREATININE 1.2 mg/dL (0.55-1.30); POTASSIUM 3.6 mmol/L (3.5-5.1)
[2020-01-20 07:30] VITALS: BP_SYST 105
[2020-01-20 08:00] VITALS: BP_SYST 105
[2020-01-20] MEDS: MUPIROCIN 2% TOPICAL OINTMENT 22 GM NS SCH ×2 (08:06→21:58)
[2020-01-20] MEDS: DOCUSATE SODIUM 100 MG CAPSULE PO SCH ×2 (08:06→21:56)
[2020-01-20] MEDS: METOLAZONE 5 MG TABLET PO SCH (08:07)
[2020-01-20] MEDS: PANTOPRAZOLE SODIUM 40 MG TAB PO SCH (08:07)
[2020-01-20] MEDS: ASPIRIN 81 MG TAB.CHEW PO SCH (08:07)
[2020-01-20] MEDS: SPIRONOLACTONE 25 MG TABLET (ALDACTONE) PO SCH ×2 (08:08→21:00)
[2020-01-20] MEDS: CARVEDILOL 6.25 MG TABLET (COREG) PO SCH ×2 (08:09→21:00)
[2020-01-20] MEDS: FUROSEMIDE 20 MG/2 ML VIAL IVP SCH (08:09)
[2020-01-20] MEDS ORDERED: LISINOPRIL 10 MG TABLET (PRINIVIL) PO ONE (09:45)
[2020-01-20 12:33] VITALS: BP_SYST 105
[2020-01-20 17:02] VITALS: BP_SYST 99
[2020-01-20] MEDS: FUROSEMIDE 40 MG/4 ML VIAL IVP SCH (17:36)
[2020-01-20] MEDS: INSULIN REGULAR, HUMAN 100 UNITS/ML, 10 ML VIAL (humuLIN R) SUBCUT PRN (21:57)
[2020-01-21 01:04] VITALS: BP_SYST 100
[2020-01-21] MEDS: LevALBUTEROL HCL 1.25 MG/0.5 ML *CONC.* VIAL.NEB (XOPENEX CONC.) INH SCH ×4 (01:58→20:53)
[2020-01-21 04:00] VITALS: BP_SYST 106
[2020-01-21 05:40] LABS: BASOPHILS % (AUTO) 0.4 % (0.0-2.0); EOSINOPHILS # (AUTO) 0.1 K/uL (0.0-0.4); EOSINOPHILS % (AUTO) 1.1 % (0.0-4.0); HEMATOCRIT 36.7 % (36-54); HEMOGLOBIN 11.7 g/dL (14.0-18.0); LYMPHOCYTES # (AUTO) 0.6 K/uL (1.0-5.5); LYMPHOCYTES % (AUTO) 13.9 % (20.5-51.5); MEAN CORPUSCULAR HEMOGLOBIN 24 pg (27-31); MEAN CORPUSCULAR HGB CONC 32 % (32-36); MEAN CORPUSCULAR VOLUME 76 fL (79.0-98.0); MONOCYTES # (AUTO) 0.6 K/uL (0.0-1.0); MONOCYTES % (AUTO) 14.4 % (1.7-9.3); NEUTROPHILS # (AUTO) 3.2 K/uL (1.8-7.7); NEUTROPHILS % (AUTO) 70.2 % (40.0-70.0); PLATELET COUNT (AUTO) 207 K/uL (130-430); RED CELL DISTRIBUTION WIDTH 19.5 % (9.0-15.0); WHITE BLOOD COUNT (AUTO) 4.5 K/uL (4.8-10.8)
[2020-01-21 05:59] LABS: CALCIUM 8.3 mg/dL (8.4-11.0); CREATININE 0.97 mg/dL (0.55-1.30); POTASSIUM 3.6 mmol/L (3.5-5.1)
[2020-01-21] MEDS: FUROSEMIDE 40 MG/4 ML VIAL IVP SCH (06:36)
[2020-01-21] MEDS: INSULIN REGULAR, HUMAN 100 UNITS/ML, 10 ML VIAL (humuLIN R) SUBCUT PRN ×2 (06:39→20:22)
[2020-01-21 08:00] VITALS: BP_SYST 98
[2020-01-21] MEDS: MUPIROCIN 2% TOPICAL OINTMENT 22 GM NS SCH ×2 (10:09→20:09)
[2020-01-21] MEDS: LISINOPRIL 10 MG TABLET (PRINIVIL) PO SCH (10:14)
[2020-01-21] MEDS: METOLAZONE 5 MG TABLET PO SCH (10:15)
[2020-01-21] MEDS: CARVEDILOL 6.25 MG TABLET (COREG) PO SCH ×2 (10:15→21:00)
[2020-01-21] MEDS: SPIRONOLACTONE 25 MG TABLET (ALDACTONE) PO SCH ×2 (10:16→21:00)
[2020-01-21] MEDS: ASPIRIN 81 MG TAB.CHEW PO SCH (10:16)
[2020-01-21] MEDS: PANTOPRAZOLE SODIUM 40 MG TAB PO SCH (10:16)
[2020-01-21] MEDS: DOCUSATE SODIUM 100 MG CAPSULE PO SCH ×2 (10:17→20:16)
[2020-01-21 12:34] VITALS: BP_SYST 104
[2020-01-21 16:46] VITALS: BP_SYST 108
[2020-01-21 20:00] VITALS: BP_SYST 106
[2020-01-21] MEDS: FUROSEMIDE 40 MG TABLET PO SCH (22:02)
[2020-01-22 00:22] VITALS: BP_SYST 115
[2020-01-22] MEDS: LevALBUTEROL HCL 1.25 MG/0.5 ML *CONC.* VIAL.NEB (XOPENEX CONC.) INH SCH ×3 (02:00→19:39)
[2020-01-22 06:15] LABS: BASOPHILS % (AUTO) 0.7 % (0.0-2.0); HEMOGLOBIN 12.3 g/dL (14.0-18.0); LYMPHOCYTES # (AUTO) 0.9 K/uL (1.0-5.5); LYMPHOCYTES % (AUTO) 18.5 % (20.5-51.5); MEAN CORPUSCULAR HEMOGLOBIN 24 pg (27-31); MEAN CORPUSCULAR HGB CONC 32 % (32-36); MEAN CORPUSCULAR VOLUME 76 fL (79.0-98.0); MONOCYTES # (AUTO) 0.8 K/uL (0.0-1.0); MONOCYTES % (AUTO) 15.4 % (1.7-9.3); NEUTROPHILS # (AUTO) 3.1 K/uL (1.8-7.7); NEUTROPHILS % (AUTO) 64.4 % (40.0-70.0); PLATELET COUNT (AUTO) 215 K/uL (130-430); RED BLOOD CELL COUNT(AUTO) 5.12 MIL/uL (4.2-6.2); RED CELL DISTRIBUTION WIDTH 18.8 % (9.0-15.0); WHITE BLOOD COUNT (AUTO) 4.9 K/uL (4.8-10.8)
[2020-01-22 06:20] LABS: CALCIUM 8.3 mg/dL (8.4-11.0); CREATININE 0.97 mg/dL (0.55-1.30); POTASSIUM 3.4 mmol/L (3.5-5.1)
[2020-01-22 08:00] VITALS: BP_SYST 136
[2020-01-22] MEDS: LISINOPRIL 10 MG TABLET (PRINIVIL) PO SCH (09:00)
[2020-01-22] MEDS: CARVEDILOL 25 MG TABLET (COREG) PO SCH ×2 (09:00→21:00)
[2020-01-22] MEDS: ASPIRIN 81 MG TAB.CHEW PO SCH (09:48)
[2020-01-22] MEDS: PANTOPRAZOLE SODIUM 40 MG TAB PO SCH (09:48)
[2020-01-22] MEDS: METOLAZONE 5 MG TABLET PO SCH (09:49)
[2020-01-22] MEDS: FUROSEMIDE 40 MG TABLET PO SCH ×2 (09:49→21:02)
[2020-01-22] MEDS: SPIRONOLACTONE 25 MG TABLET (ALDACTONE) PO SCH ×2 (09:50→21:01)
[2020-01-22] MEDS: MUPIROCIN 2% TOPICAL OINTMENT 22 GM NS SCH ×2 (09:51→21:02)
[2020-01-22 12:13] VITALS: BP_SYST 92
[2020-01-22] MEDS: INSULIN REGULAR, HUMAN 100 UNITS/ML, 10 ML VIAL (humuLIN R) SUBCUT PRN ×2 (13:03→21:17)
[2020-01-22] MEDS: DOCUSATE SODIUM 100 MG CAPSULE PO SCH ×2 (13:04→20:59)
[2020-01-22 16:12] VITALS: BP_SYST 102
[2020-01-22 20:00] VITALS: BP_SYST 102
[2020-01-22 23:41] VITALS: BP_SYST 98
[2020-01-23] MEDS: LevALBUTEROL HCL 1.25 MG/0.5 ML *CONC.* VIAL.NEB (XOPENEX CONC.) INH SCH ×2 (02:07→07:36)
[2020-01-23 07:35] VITALS: BP_SYST 88
[2020-01-23 07:58] VITALS: BP_SYST 88
[2020-01-23] MEDS: CARVEDILOL 25 MG TABLET (COREG) PO SCH ×2 (09:00→20:41)
[2020-01-23] MEDS: LISINOPRIL 10 MG TABLET (PRINIVIL) PO SCH (09:00)
[2020-01-23] MEDS: SPIRONOLACTONE 25 MG TABLET (ALDACTONE) PO SCH ×2 (09:30→20:42)
[2020-01-23] MEDS: METOLAZONE 5 MG TABLET PO SCH (09:30)
[2020-01-23] MEDS: PANTOPRAZOLE SODIUM 40 MG TAB PO SCH (09:30)
[2020-01-23] MEDS: ASPIRIN 81 MG TAB.CHEW PO SCH (09:31)
[2020-01-23] MEDS: FUROSEMIDE 40 MG TABLET PO SCH ×2 (09:31→20:43)
[2020-01-23] MEDS: DOCUSATE SODIUM 100 MG CAPSULE PO SCH ×2 (09:31→20:35)
[2020-01-23 12:18] VITALS: BP_SYST 91
[2020-01-23 16:54] VITALS: BP_SYST 95
[2020-01-23] MEDS: MUPIROCIN 2% TOPICAL OINTMENT 22 GM NS SCH (18:12)
[2020-01-23 20:00] VITALS: BP_SYST 90
[2020-01-23] MEDS: INSULIN REGULAR, HUMAN 100 UNITS/ML, 10 ML VIAL (humuLIN R) SUBCUT PRN (20:45)
[2020-01-24 00:27] VITALS: BP_SYST 132
[2020-01-24 06:44] LABS: BASOPHILS # (AUTO) 0.1 K/uL (0.0-0.2); BASOPHILS % (AUTO) 1.1 % (0.0-2.0); CALCIUM 8.7 mg/dL (8.4-11.0); CREATININE 0.99 mg/dL (0.55-1.30); EOSINOPHILS # (AUTO) 0.1 K/uL (0.0-0.4); EOSINOPHILS % (AUTO) 1.4 % (0.0-4.0); HEMATOCRIT 38.4 % (36-54); HEMOGLOBIN 11.9 g/dL (14.0-18.0); LYMPHOCYTES # (AUTO) 0.9 K/uL (1.0-5.5); LYMPHOCYTES % (AUTO) 18.6 % (20.5-51.5); MEAN CORPUSCULAR HEMOGLOBIN 24 pg (27-31); MEAN CORPUSCULAR HGB CONC 31 % (32-36); MEAN CORPUSCULAR VOLUME 77 fL (79.0-98.0); MONOCYTES # (AUTO) 0.6 K/uL (0.0-1.0); MONOCYTES % (AUTO) 12.7 % (1.7-9.3); NEUTROPHILS # (AUTO) 3.1 K/uL (1.8-7.7); NEUTROPHILS % (AUTO) 66.2 % (40.0-70.0); PLATELET COUNT (AUTO) 204 K/uL (130-430); POTASSIUM 3.5 mmol/L (3.5-5.1); RED BLOOD CELL COUNT(AUTO) 5.01 MIL/uL (4.2-6.2); RED CELL DISTRIBUTION WIDTH 19.5 % (9.0-15.0); WHITE BLOOD COUNT (AUTO) 4.7 K/uL (4.8-10.8)
[2020-01-24 07:55] VITALS: BP_SYST 87
[2020-01-24] MEDS: ASPIRIN 81 MG TAB.CHEW PO SCH (08:23)
[2020-01-24] MEDS: DOCUSATE SODIUM 100 MG CAPSULE PO SCH ×2 (08:23→20:35)
[2020-01-24] MEDS: PANTOPRAZOLE SODIUM 40 MG TAB PO SCH (08:24)
[2020-01-24] MEDS: FUROSEMIDE 40 MG TABLET PO SCH ×2 (08:28→20:35)
[2020-01-24] MEDS: CARVEDILOL 25 MG TABLET (COREG) PO SCH ×2 (08:29→20:35)
[2020-01-24] MEDS: METOLAZONE 5 MG TABLET PO SCH (08:29)
[2020-01-24] MEDS: SPIRONOLACTONE 25 MG TABLET (ALDACTONE) PO SCH ×2 (08:29→20:34)
[2020-01-24] MEDS: LISINOPRIL 10 MG TABLET (PRINIVIL) PO SCH (08:32)
[2020-01-24] MEDS: INSULIN REGULAR, HUMAN 100 UNITS/ML, 10 ML VIAL (humuLIN R) SUBCUT PRN ×2 (11:45→20:42)
[2020-01-24 12:37] VITALS: BP_SYST 89
[2020-01-24 16:32] VITALS: BP_SYST 84
[2020-01-24 20:00] VITALS: BP_SYST 119
[2020-01-25 01:30] VITALS: BP_SYST 109
[2020-01-25] MEDS: INSULIN REGULAR, HUMAN 100 UNITS/ML, 10 ML VIAL (humuLIN R) SUBCUT PRN (06:18)
[2020-01-25] MEDS: CARVEDILOL 25 MG TABLET (COREG) PO SCH (08:43)
[2020-01-25] MEDS: DOCUSATE SODIUM 100 MG CAPSULE PO SCH (08:43)
[2020-01-25] MEDS: ASPIRIN 81 MG TAB.CHEW PO SCH (08:44)
[2020-01-25] MEDS: SPIRONOLACTONE 25 MG TABLET (ALDACTONE) PO SCH (08:45)
[2020-01-25] MEDS: PANTOPRAZOLE SODIUM 40 MG TAB PO SCH (08:45)
[2020-01-25 08:48] VITALS: BP_SYST 101
[2020-01-25] MEDS ORDERED: METOLAZONE 5 MG TABLET PO SCH (09:00)
[2020-01-25] MEDS: LISINOPRIL 10 MG TABLET (PRINIVIL) PO SCH (09:00)
[2020-01-25] MEDS: FUROSEMIDE 40 MG TABLET PO SCH (09:00)
[2020-01-25 12:38] VITALS: BP_SYST 87
[2020-01-25 16:39] VITALS: BP_SYST 96
[2020-01-25 17:06] VITALS: BP_SYST 96
== END 2020-01-25 18:47 | disposition hospice, home (50) | DRG 682 ==
LOC: SED 11:14 → STU 13:58
PROVIDERS: ADMIT Family Medicine; ATTEND Family Medicine
PROC: 0W9G3ZZ Drainage of Peritoneal Cavity, Percutaneous Approach (ICD-10-PCS; principal; 2020-01-18)
DX: N17.0 Acute kidney failure with tubular necrosis (principal); I50.43 Acute on chronic combined systolic (congestive) and diastolic (congestive) heart failure; R18.8 Other ascites; I42.0 Dilated cardiomyopathy; D68.9 Coagulation defect, unspecified; E87.2 Acidosis; E11.9 Type 2 diabetes mellitus without complications; F03.90 Unspecified dementia, unspecified severity, without behavioral disturbance, psychotic disturbance, mood disturbance, and anxiety; K76.9 Liver disease, unspecified; F17.210 Nicotine dependence, cigarettes, uncomplicated; F20.9 Schizophrenia, unspecified; J44.9 Chronic obstructive pulmonary disease, unspecified; E87.70 Fluid overload, unspecified; K63.5 Polyp of colon; Z79.899 Other long term (current) drug therapy; Z82.5 Family history of asthma and other chronic lower respiratory diseases; Z88.8 Allergy status to other drugs, medicaments and biological substances
CPT/HCPCS: 36415; 49083; 71045; 76700-TC; 80048; 80053; 80061; 81003; 82042; 82140-TC; 82803-TC; 82947-TC; 82962; 83036; 83605; 83735-TC; 83880; 84157-TC; 84443-TC; 84484; 85007; 85025; 85027; 85610-TC; 85730-TC; 87040-TC; 87081; 87086; 88108; 89051-TC; 89060-TC; 93005; 93306; 94640; 94760; 96374; 99285; C1729; G0378; J1815; J1940; J7612

== ENCOUNTER 2021-06-18 09:30 | Outpatient (CLI) | payer OTHER ==
[~2021-06-18 09:30] MED LIST changes: -ACET-2165 PO; +ACET325T PO; +ASCO500T20 PO; +CARV25TA55 PO; +CHOL500013 PO; -DOCU-144 PO; -FAMO40TA7 PO; +FURO-149 PO; +FURO80TA3 PO; +MULT-1100 PO; +PRO40 PO; +SPIR25TA6 PO; -UMEC62.5 IH; +ZINC220T4 PO
== END 2021-06-18 20:22 | disposition home or self-care (01) ==
LOC: SUS 09:30
PROVIDERS: ATTEND Family Medicine
DX: R18.8 Other ascites (principal)
CPT/HCPCS: 49083; C1729